=== PATIENT | female | born 1945 | race Caucasian/White ===

== ENCOUNTER → 2018-02-24 | Outpatient (CLI) | payer MEDICARE ==
[~2018-02-24] MED LIST: CLARITIN10 MG PO; MEDROL DOSEPAK4 MG PO
== END | disposition home or self-care (01) ==
LOC: MRI 02-19 11:00 → LAB 13:15 → MRI 02-26 11:00
DX: G93.0 Cerebral cysts (principal); E78.00 Pure hypercholesterolemia, unspecified; F41.1 Generalized anxiety disorder; E74.00 Glycogen storage disease, unspecified; F03.90 Unspecified dementia, unspecified severity, without behavioral disturbance, psychotic disturbance, mood disturbance, and anxiety

== ENCOUNTER → 2018-08-20 | Outpatient (CLI) | payer MEDICARE | END | disposition home or self-care (01) | LOC: MAMMO 08:40 | DX: Z12.31 Encounter for screening mammogram for malignant neoplasm of breast (principal) ==

== ENCOUNTER 2019-08-17 10:34 | Emergency (ER) | payer MEDICARE ==
[~2019-08-17] VITALS: Ht 165.1 cm; Wt 81.6 kg
[2019-08-17 10:36] VITALS: BP 158/60
[2019-08-17] MEDS ORDERED: NORCO 5-325 TA1 EACH PO (12:10)
== END 2019-08-17 12:17 | disposition home or self-care (01) ==
LOC: ED 10:34
DX: S52.592A Other fractures of lower end of left radius, initial encounter for closed fracture (principal); E78.00 Pure hypercholesterolemia, unspecified; Z88.2 Allergy status to sulfonamides; W19.XXXA Unspecified fall, initial encounter; Y93.89 Activity, other specified; Y92.89 Other specified places as the place of occurrence of the external cause; Y99.8 Other external cause status

== ENCOUNTER → 2019-08-19 | Outpatient (CLI) | payer MEDICARE ==
[~2019-08-19] MED LIST changes: +NORCO 5-325 TA1 EACH PO
== END | disposition home or self-care (01) ==
LOC: RAD 08:30
DX: Z13.820 Encounter for screening for osteoporosis (principal); E28.39 Other primary ovarian failure; E11.9 Type 2 diabetes mellitus without complications; N95.9 Unspecified menopausal and perimenopausal disorder; Z90.710 Acquired absence of both cervix and uterus; Z90.722 Acquired absence of ovaries, bilateral

== ENCOUNTER 2021-04-21 22:15 | Emergency (ER) | payer MEDICARE ==
[~2021-04-21] VITALS: Ht 165.1 cm; Wt 79.4 kg
[2021-04-21 23:07] LABS: BASO % 0.4 % (0.0-1.0); EOS # 0.2 10*3/uL (0.0-0.4); EOS % 2.6 % (1.0-4.0); HEMATOCRIT 37.2 % (37.0-47.0); LYMPH # 1.4 10*3/uL (1.3-4.4); LYMPH % 16.9 % (27.0-41.0); MEAN CELL VOLUME 84.2 fl (81.0-99.0); MEAN CORPUSCULAR HGB 27.4 pg (27.0-31.0); MEAN CORPUSCULAR HGB CONC 32.5 g/dl (33.0-37.0); MEAN PLATELET VOLUME 8.3 fl (9.6-12.3); MONO # 0.6 10*3/uL (0.1-1.0); MONO % 7.6 % (3.0-9.0); NEUT # 5.8 10*3/uL (2.3-7.9); NEUT % 72.3 % (47.0-73.0); PLATELET COUNT AUTOMATED 269 10*3/uL (130-400); RED BLOOD COUNT 4.42 10*6/uL (4.10-5.10); RED CELL DISTRI WIDTH 13.1 % (0-14.5)
[2021-04-21 23:31] LABS: ALBUMIN 3.6 gm/dl (3.1-4.5); ALKALINE PHOSPHATASE 118 U/L (45-117); BUN 12 mg/dl (7-24); CHLORIDE 105 mmol/L (98-107); CREATININE 0.76 mg/dL (0.55-1.02); LIPASE 89 U/L (73-393); POTASSIUM 3.8 mmol/L (3.5-5.1); SGOT/AST 14 IU/L (3-35); SGPT/ALT 19 U/L (12-78); SODIUM 137 mmol/L (136-145); TOTAL PROTEIN 7.6 gm/dL (6.4-8.2)
[2021-04-21 23:33] LABS: TROPONIN I < 0.015 ng/ml (<0.045)
[2021-04-22] MEDS ORDERED: COLACE100 MG PO (03:14)
[2021-04-22 03:20] VITALS: BP 135/69
== END 2021-04-22 03:19 | disposition home or self-care (01) ==
LOC: ED 22:15
PROVIDERS: Emergency Medicine
DX: K59.00 Constipation, unspecified (principal); E11.9 Type 2 diabetes mellitus without complications; I10 Essential (primary) hypertension; Z88.2 Allergy status to sulfonamides; Z79.899 Other long term (current) drug therapy; Z90.711 Acquired absence of uterus with remaining cervical stump

== ENCOUNTER 2021-04-25 13:51 | Inpatient (IN) | payer MEDICARE ==
[~2021-04-25] VITALS: Ht 165.1 cm; Wt 78.1 kg
[~2021-04-25 13:51] MED LIST changes: +COLACE100 MG PO
[2021-04-25 14:06] VITALS: BP 126/54
[2021-04-25 14:43] LABS: BASO % 0.3 % (0.0-1.0); EOS % 0.7 % (1.0-4.0); HEMATOCRIT 37.4 % (37.0-47.0); LYMPH # 0.5 10*3/uL (1.3-4.4); LYMPH % 8.3 % (27.0-41.0); MEAN CORPUSCULAR HGB CONC 32.9 g/dl (33.0-37.0); MEAN PLATELET VOLUME 8.3 fl (9.6-12.3); MONO # 0.5 10*3/uL (0.1-1.0); MONO % 9.4 % (3.0-9.0); NEUT # 4.7 10*3/uL (2.3-7.9); NEUT % 81.1 % (47.0-73.0); PLATELET COUNT AUTOMATED 228 10*3/uL (130-400); RED BLOOD COUNT 4.56 10*6/uL (4.10-5.10); RED CELL DISTRI WIDTH 13.2 % (0-14.5); WHITE BLOOD COUNT 5.8 10*3/uL (4.8-10.8)
[2021-04-25 15:01] LABS: ALBUMIN 3.2 gm/dl (3.1-4.5); ALKALINE PHOSPHATASE 125 U/L (45-117); BUN 14 mg/dl (7-24); CHLORIDE 103 mmol/L (98-107); CPK 382 U/L (26-192); CREATININE 0.65 mg/dL (0.55-1.02); POTASSIUM 3.4 mmol/L (3.5-5.1); SGOT/AST 50 IU/L (3-35); SGPT/ALT 46 U/L (12-78); SODIUM 133 mmol/L (136-145); TOTAL PROTEIN 7.6 gm/dL (6.4-8.2)
[2021-04-25 15:05] LABS: TROPONIN I < 0.015 ng/ml (<0.045)
[2021-04-25 15:11] LABS: BILIRUBIN 1+ (Negative); BLOOD Trace-Lysed (Negative); CLARITY Clear (Clear); COLOR Dark Yellow (Yellow); GLUCOSE Negative (Negative); KETONE 1+ (Negative); LEUKO ESTERASE Trace (Negative); NITRITE Negative (Negative); PH 5.5 (4.5-8.0); SPECIFIC GRAVITY >= 1.030 (1.001-1.030)
[2021-04-25 15:47] LABS: BACTERIA 3+; MUCOUS 1+; WBC 16-20 wbc/hpf (0-5)
[2021-04-25 20:12] VITALS: BP 132/57
[2021-04-25] MEDS ORDERED: ENALAPRIL MALE2.5 MG PO (21:03)
[2021-04-25] MEDS ORDERED: ATORVASTATIN CA40 M1 PO (21:03)
[2021-04-25] MEDS ORDERED: SERTRALINE HYDR50 MG PO (21:03)
[2021-04-25] MEDS ORDERED: RYBELSUS3 MG PO (21:04)
[2021-04-25] MEDS ORDERED: METFORMIN HYDR500 MG PO (21:04)
[2021-04-25 21:55] VITALS: BP 123/50
[2021-04-26] VITALS: BP 123/50
[2021-04-26 06:36] LABS: BASO % 0.4 % (0.0-1.0); EOS # 0.2 10*3/uL (0.0-0.4); EOS % 4.8 % (1.0-4.0); HEMATOCRIT 36.6 % (37.0-47.0); LYMPH # 0.6 10*3/uL (1.3-4.4); LYMPH % 13.9 % (27.0-41.0); MEAN CORPUSCULAR HGB 26.5 pg (27.0-31.0); MEAN PLATELET VOLUME 8.4 fl (9.6-12.3); MONO # 0.5 10*3/uL (0.1-1.0); MONO % 11.7 % (3.0-9.0); NEUT # 3.2 10*3/uL (2.3-7.9); PLATELET COUNT AUTOMATED 226 10*3/uL (130-400); RED BLOOD COUNT 4.41 10*6/uL (4.10-5.10); RED CELL DISTRI WIDTH 13.2 % (0-14.5); WHITE BLOOD COUNT 4.6 10*3/uL (4.8-10.8)
[2021-04-26 06:54] LABS: ALBUMIN 2.9 gm/dl (3.1-4.5); ALKALINE PHOSPHATASE 126 U/L (45-117); BUN 13 mg/dl (7-24); CHLORIDE 104 mmol/L (98-107); CREATININE 0.63 mg/dL (0.55-1.02); SGOT/AST 55 IU/L (3-35); SGPT/ALT 49 U/L (12-78); SODIUM 135 mmol/L (136-145); TOTAL PROTEIN 7.2 gm/dL (6.4-8.2)
[2021-04-26 07:00] LABS: FREE T4 1.41 ng/dl (0.76-1.46)
[2021-04-26 07:16] LABS: POTASSIUM 4.6 mmol/L (3.5-5.1)
[2021-04-26 07:40] LABS: VITAMIN D, 25-HYDROXY 17.3 ng/mL (30-100)
[2021-04-26 08:00] VITALS: BP 122/54
[2021-04-26 12:00] VITALS: BP 109/57
[2021-04-26 16:00] VITALS: BP 106/43
[2021-04-26 20:00] VITALS: BP 105/43
[2021-04-27] VITALS: BP 108/52
[2021-04-27 06:33] LABS: BUN 16 mg/dl (7-24); CHLORIDE 106 mmol/L (98-107); CREATININE 0.62 mg/dL (0.55-1.02); SODIUM 137 mmol/L (136-145)
[2021-04-27 08:00] VITALS: BP 132/56
[2021-04-27] MEDS ORDERED: VITAMIN D3125 MC1 PO (11:35)
[2021-04-27] MEDS ORDERED: LISINOPRIL5 MG PO (11:35)
[2021-04-27 12:00] VITALS: BP 99/58
== END 2021-04-27 12:30 | disposition home or self-care (01) | DRG 689 ==
LOC: ED 13:51 → 4E 17:14 → EDHOLD 17:14 → 4E 21:44
PROVIDERS: Emergency Medicine; Internal Medicine; ADMIT Internal Medicine; ATTEND Internal Medicine
DX: N39.0 Urinary tract infection, site not specified (principal); G93.41 Metabolic encephalopathy; E87.1 Hypo-osmolality and hyponatremia; G31.9 Degenerative disease of nervous system, unspecified; S00.83XA Contusion of other part of head, initial encounter; I10 Essential (primary) hypertension; E78.5 Hyperlipidemia, unspecified; E87.6 Hypokalemia; E11.65 Type 2 diabetes mellitus with hyperglycemia; E83.41 Hypermagnesemia; R74.01 Elevation of levels of liver transaminase levels; R74.8 Abnormal levels of other serum enzymes; F32.9 Major depressive disorder, single episode, unspecified; K59.00 Constipation, unspecified; W06.XXXA Fall from bed, initial encounter; Z88.2 Allergy status to sulfonamides; Z90.710 Acquired absence of both cervix and uterus; Y93.89 Activity, other specified; Y92.89 Other specified places as the place of occurrence of the external cause; Y99.8 Other external cause status

== ENCOUNTER → 2021-06-26 | Outpatient (CLI) | payer MEDICARE ==
[~2021-06-26] MED LIST changes: +ATORVASTATIN CA40 M1 PO; +ENALAPRIL MALE2.5 MG PO; +LISINOPRIL5 MG PO; +METFORMIN HYDR500 MG PO; +RYBELSUS3 MG PO; +SERTRALINE HYDR50 MG PO; +VITAMIN D3125 MC1 PO
== END | disposition home or self-care (01) ==
LOC: MAMMO 08:54
PROVIDERS: ATTEND Family Medicine
DX: Z12.31 Encounter for screening mammogram for malignant neoplasm of breast (principal)

== ENCOUNTER → 2021-06-27 | Outpatient (CLI) | payer MEDICARE | END | disposition home or self-care (01) | LOC: COVID19 15:41 | PROVIDERS: ATTEND Family Medicine | DX: U07.1 COVID-19 (principal) ==